=== PATIENT | male | born 1965 ===

== ENCOUNTER 2017-03-07 16:47 | Inpatient (IN) | payer MEDICAID ==
[2017-03-07 16:47] VITALS: BMI 27.3
--- NOTE | 2017-03-07 18:19 | C.PDOC ---
History Of Present Illness 51 y/o male with dm c/oi left sided cp x 1 one; pt sts he was called to his doctor's office for abnormal blood work today, had an echocardiogram done in office and abnormality found so sent to ed. pt was given 2 sprays of sublingual nitro spray and sts pain decreased after second one, has minimal pain now. pt received 324 asa by ems. no prior cardiac catheterizations. Time Seen by Provider: 03/07/17 17:37 Chief Complaint (Nursing): Chest Pain Past Medical History Reviewed: Historical Data, Nursing Documentation, Vital Signs Vital Signs: Last Vital Signs Temp 97.9 F 03/07/17 16:50 Pulse 91 H 03/07/17 16:50 Resp 16 03/07/17 16:50 BP 97/62 L 03/07/17 16:50 Pulse Ox 99 03/07/17 18:48 - Medical History PMH: Anxiety, Back Problems (by HX), Bipolar Disorder, Diabetes, Hepatitis, Post Traumatic Stress Disorder, Schizophrenia Denies: HIV, HTN, Seizures, Sexually Transmitted Disease Surgical History: No Surg Hx - [facility] Procedures APPLICATION OF SPLINT (11/02/13) CLOSURE SKIN & SUBCUTANEOUS NEC (06/19/14) DETOXIFICATION SERVICES FOR SUBSTANCE ABUSE TREATMENT (08/14/16) INJECT/INFUSE NEC (10/02/14) Family History: States: Unknown Family Hx - Social History Hx Tobacco Use: No Hx Alcohol Use: No Hx Substance Use: Yes - Immunization History Hx Tetanus Toxoid Vaccination: Yes Hx Influenza Vaccination: Yes Hx Pneumococcal Vaccination: No Review Of Systems Constitutional: Negative for: Fever, Chills Cardiovascular: Positive for: Chest Pain. Negative for: Palpitations Respiratory: Negative for: Cough, Shortness of Breath Gastrointestinal: Negative for: Nausea, Vomiting, Abdominal Pain Musculoskeletal: Negative for: Arm Pain Skin: Negative for: Rash Neurological: Negative for: Weakness, Numbness Physical Exam - Physical Exam Appears: Non-toxic, No Acute Distress Skin: Normal Color, Warm, Dry Head: Atraumatic, Normacephalic Neck: Normal ROM Chest: Symmetrical, No Deformity, No Tenderness Cardiovascular: Rhythm Regular, No Murmur Respiratory: Normal Breath Sounds, No Rales, No Rhonchi, No Wheezing Gastrointestinal/Abdominal: Normal Exam, Bowel Sounds, Soft, No Tenderness Extremity: Normal ROM, No Pedal Edema, No Calf Tenderness Neurological/Psych: Oriented x3, Normal Speech, Normal Cognition, Normal Motor, Normal Sensation ED Course And Treatment - Laboratory Results Result Diagrams: 03/07/17 18:27 ECG: Interpreted By Me, Viewed By Me ECG Rhythm: Sinus Rhythm ECG Interpretation: Normal Rate From EC O2 Sat by Pulse Oximetry: 99 Pulse Ox Interpretation: Normal Medical Decision Making Medical Decision Making: pt sent to ED by Dr Armand Mcintyre for septal dyskinesia on echo in office today. discussed with Dr Mcintyre; requests we admit to [facility]inty[facility] with Dr Luo for cardiology consult. Disposition Discussed With : Molly Mcintyre Doctor Will See Patient In The: Hospital - Disposition Disposition: HOSPITALIZED Disposition Time: 18:48 Condition: STABLE - Clinical Impression Clinical Impression: Chest pain, Echocardiogram abnormal Decision To Admit - Pt Status Changed To: Hospital Disposition Of: Inpatient - Admit Certification Admit to Inpatient:: After my assessment, the patient will require hospitalization for at least two midnights. This is because of the severity of symptoms shown, intensity of services needed, and/or the medical risk in this patient being treated as an outpatient. - InPatient: Physician Admission Certification: I certify that this patient requires 2 or more midnights of care for the following reason:: for cardiac workup - . Bed Request Type: Telemetry Patient Diagnosis: Chest pain, Echocardiogram abnormal
[2017-03-07 18:30] LABS: BASO # 0.1 K/uL (0.0-0.2); BASO % 1.3 % (0.0-2.0); EOS # 0.1 K/uL (0.0-0.7); EOS % 1.6 % (0.0-4.0); HEMATOCRIT 41.8 % (35.0-51.0); LYMPH # 3.5 K/uL (1.0-4.3); LYMPH % 40.3 % (20.0-40.0); MEAN CELL VOLUME 84.4 fL (80.0-94.0); MEAN CORPUSCULAR HEMOGLOBIN 28.7 pg (27.0-31.0); MEAN PLATELET VOLUME 8.8 fL (7.2-11.7); MONO # 0.8 K/uL (0.0-0.8); MONO % 9.5 % (0.0-10.0); RED CELL DISTRIBUTION WIDTH 12.8 % (11.5-14.5); WHITE BLOOD COUNT 8.7 K/uL (4.8-10.8)
[2017-03-07 18:39] LABS: CHLORIDE 96 mmol/L (98-107)
[2017-03-07 18:40] LABS: POTASSIUM 4.6 mmol/L (3.6-5.2); SODIUM 134 mmol/L (132-148)
[2017-03-07 18:42] LABS: AST/SGOT 66 U/L (17-59); BILIRUBIN,TOTAL 0.7 mg/dL (0.2-1.3); BLOOD UREA NITROGEN 18 mg/dL (9-20); CARBON DIOXIDE 25 mmol/L (22-30); GFR AFRICAN-AMERICAN > 60; TOTAL PROTEIN 7.8 g/dL (6.3-8.3)
[2017-03-07 18:43] LABS: ALKALINE PHOSPHATASE 51 U/L (38-126); ALT/SGPT 66 U/L (21-72); CALCIUM 8.3 mg/dl (8.6-10.4); GLUCOSE,RANDOM 201 mg/dL (75-110)
--- NOTE | 2017-03-08 09:03 | CP.PCM.PN ---
Subjective - Date & Time of Evaluation Date of Evaluation: 03/08/17 Time of Evaluation: 15:00 - Subjective Subjective: Dr. Love service: Patient seen and examined in room. patient denies chest pain or shortness of breath. Objective - Vital Signs/Intake and Output Vital Signs (last 24 hours): Temp Pulse Resp BP Pulse Ox 97.7 F 59 L 20 123/69 96 03/08/17 08:05 03/08/17 08:05 03/08/17 08:05 03/08/17 08:05 03/08/17 08:05 - Medications Medications: Current Medications Heparin Sodium (Porcine) (Heparin) 5,000 units SC Q12 HERLINDA Metformin HCl (Glucophage) 500 mg PO BID HERLINDA Pneumococcal Polyvalent Vaccine (Pneumovax 23 Vaccine) 0.5 ml IM .ONCE ONE Stop: 03/10/17 10:01 - Constitutional Appears: Non-toxic, No Acute Distress - Head Exam Head Exam: NORMAL INSPECTION - Eye Exam Eye Exam: Normal appearance Pupil Exam: NORMAL ACCOMODATION - Respiratory Exam Respiratory Exam: Clear to Ausculation Bilateral, NORMAL BREATHING PATTERN. absent: Rales, Rhonchi, Wheezes - Cardiovascular Exam Cardiovascular Exam: REGULAR RHYTHM, RRR, +S1, +S2. absent: Gallop, Rubs - GI/Abdominal Exam GI & Abdominal Exam: Soft, Normal Bowel Sounds. absent: Tenderness - Extremities Exam Extremities Exam: Normal Inspection. absent: Pedal Edema - Psychiatric Exam Psychiatric exam: Normal Affect, Normal Mood - Skin Skin Exam: Normal Color Assessment and Plan - Assessment and Plan (Free Text) Assessment: Patient had a normal stress test per Dr. Lynch and is stable for discharge. Discharged him and he will follow up with Dr. Love after discharge.
--- NOTE | 2017-03-08 11:24 | RAD ---
HISTORY: chest pain COMPARISON: 07/16/2016 TECHNIQUE: Chest PA and lateral FINDINGS: LUNGS: No active pulmonary disease. PLEURA: No significant pleural effusion identified. No pneumothorax apparent. CARDIOVASCULAR: Normal. OSSEOUS STRUCTURES: No significant abnormalities. VISUALIZED UPPER ABDOMEN: Normal. OTHER FINDINGS: None. IMPRESSION: No active disease.
--- NOTE | 2017-03-08 13:07 | HP ---
The patient is admitted to the hospital with a chief complaint of chest pain, retrosternal, occasiona l shortness of breath. The patient has history of type 2 diabetes. PHYSICAL EXAMINATION: GENERAL: The patient is awake, alert, oriented to time and place. VITAL SIGNS: Temperature 98, pulse 90. HEENT: Within normal limits. NECK: Supple. CHEST: Symmetrical. HEART: Regular. ABDOMEN: Soft. EXTREMITIES: No edema. The patient suffers from unstable angina, rule out acute pulmonary syndrome. The patient get bedrest , cardiac enzymes, cardiology consult. Keke Wesley MD cc: [id number] TT: 03/08/2017 11:37:41 en
--- NOTE | 2017-03-08 15:07 | CARD ---
APPROVED REPORT Protocol: AUTUMN Test Type: MYOVIEW STRESS Test Indications: CHEST PAIN,ABNORMAL ECHOCARDIOGRAM Medications: LIST SCAN Medical History: CHEST PAIN, ABN. ECHO Target HR: 167 bpm Resting ECG: normal Resting Heart Rate: 82 bpm Resting Blood Pressure: 128/80mmHg submaximum (85%): 142 bpm TEST SUMMARY PRETESTWARM-UP12:[id number]/[id number]. EXERCISESTAGE 103:[id number]/70.0. EXERCISESTAGE 202:[id number]/70.0. [id number]/70.0. POST EXERCISE Reason for Termination: Fatigue Target HR: No Max HR: 118 bpm 70% of Maximum Predicted HR: 167 bpm Exercise duration: 05:03 min:sec, 2 Stage Exercise capacity: 7.0METs Max Blood Pressure: 160/70mmHg Blood Pressure response to exercise: normal resting BP - appropriate response Heart Rate response to exercise: appropriate Chest Pain: No, none Angina index: 0 Arrhythmia: No, none ST Change: No, none Deviation: 0 mm INTERPRETATION Stress EKG Conclusion: AWAIT NUCLEAR IMAGES. EXAM: Myocardial Perfusion STRESS/REST Imaging Protocol The imaging protocol used to acquire images was Stress Tc-99m/rest Tc-99m 1 day Stress Spect myocardial perfusion imaging was performed in supine position 38 minutes following the injection of 13 mCi of Tc-99 Myoview. Gated Rest Spect was performed 39 minutes after intravenous 30.6 mCi Tc-99 Myoview injection. The images were gated to evaluate regional wall motion and calculate ventricular ejection fraction.Images were reconstructed using backfilter projection method in short horizontal and verticle long axis. Spect slices were generated. RESTING DATA GBU548.74xcYP2.30L/min ESV35.00mlMyocardial Pufl404.00g Av. Heart Rate62.00bpm EF67.00% STRESS DATA EDV97.12tcUT2.90L/min ESV38.00mlMyocardial Rpqs063.00g EF61.00% Regional WT score at stress:0.00 Regional WM score at stress:0.00 Summed WT score at stress:8.00 Av. Heart Rate66.00bpmSummed WM score at stress:3.00 LV Perf. Quant 17 Seg. SSS0.00 17 Seg. SRS0.00 17 Seg. SDS0.00 Stress Defect Extent (% LAD)0.00Rest Defect Extent (% LAD)0.00Rev. Defect Extent (% LAD)0.00 Stress Defect Extent (% LCX)0.00Rest Defect Extent (% LCX)0.00Rev. Defect Extent (% LCX)0.00 Stress Defect Extent (% RCA)0.00Rest Defect Extent (% RCA)0.00Rev. Defect Extent (% RCA)0.00 Stress Defect Extent (% ESTELA)0.00Rest Defect Extent (% ESTELA)0.00Rev. Defect Extent (% ESTELA)0.00 Other Information Quality:Excellent Overall Exercise Capacity: Average IMPRESSION Normal Myocardial Perfusion exercise stress study Global LV Function: Normal Stress Test Summary: Nondiagnostic LV Perfusion Summary: Normal Left Ventricle LV Size/Shape: The left ventricle is normal size. LV Thickness: There is normal left ventricular wall thickness. LV Function:Left ventricle systolic function is normal. The Ejection Fraction is 55-60%. Regional Wall Motion:No regional wall motion abnormalities noted. Metabolism/Perfusion There are no perfusion/metabolism defects. Conclusion 1. The stress and resting images show normal perfusion.
[2017-03-08 16:08] VITALS: BP 115/70; PULSE 63; RESP 18; TEMP 97.9; O2SAT 97
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
[2017-03-10] MEDS ORDERED: Pneumococcal 23-Valent Vaccine IM ONE (10:00)
--- NOTE | 2017-03-11 12:27 | CARD ---
APPROVED REPORT EKG Measurement Heart [id number] NE 188P37 [id number] <Conclusion> Normal sinus rhythm Normal ECG
== END 2017-03-08 16:45 | disposition home or self-care (01) | DRG 140 ==
LOC: C.ER 16:47 → C.9E 18:45 → C.6T 19:55
PROVIDERS: ADMIT Internal Medicine Pulmonary Disease; ATTEND Internal Medicine Pulmonary Disease
DX: I20.0 Unstable angina (principal); F20.9 Schizophrenia, unspecified; E11.9 Type 2 diabetes mellitus without complications; Z87.891 Personal history of nicotine dependence; F31.9 Bipolar disorder, unspecified; F43.10 Post-traumatic stress disorder, unspecified; Z87.01 Personal history of pneumonia (recurrent)

== ENCOUNTER 2017-03-22 12:48 | Emergency (ER) | payer MEDICAID ==
[2017-03-22 12:56] VITALS: BMI 33.3
[2017-03-22 12:58] VITALS: RESP 18; O2SAT 99
[2017-03-22 13:48] LABS: BASO # 0.1 K/uL (0.0-0.2); BASO % 1.1 % (0.0-2.0); EOS # 0.1 K/uL (0.0-0.7); EOS % 2.5 % (0.0-4.0); HEMATOCRIT 40.7 % (35.0-51.0); LYMPH # 2.7 K/uL (1.0-4.3); LYMPH % 47.4 % (20.0-40.0); MEAN CELL VOLUME 84.5 fL (80.0-94.0); MEAN CORPUSCULAR HEMOGLOBIN 28.1 pg (27.0-31.0); MEAN CORPUSCULAR HGB CONC 33.2 g/dL (33.0-37.0); MEAN PLATELET VOLUME 8.8 fL (7.2-11.7); MONO # 0.6 K/uL (0.0-0.8); MONO % 9.7 % (0.0-10.0); NRBC % 0.1 % (0.0-2.0); RED CELL DISTRIBUTION WIDTH 12.5 % (11.5-14.5); WHITE BLOOD COUNT 5.7 K/uL (4.8-10.8)
--- NOTE | 2017-03-22 13:51 | RAD ---
PROCEDURE: CHEST RADIOGRAPH, 1 VIEW HISTORY: SOB COMPARISON: 03/07/2017 FINDINGS: LUNGS: Mild hazy opacity in the lung bases. PLEURA: No pneumothorax or pleural fluid seen. CARDIOVASCULAR: Normal. OSSEOUS STRUCTURES: No significant abnormalities. VISUALIZED UPPER ABDOMEN: Upper abdomen is suboptimally evaluated. OTHER FINDINGS: None. IMPRESSION: Mild hazy opacity in the lung bases.
[2017-03-22 13:52] LABS: RBC URINE 1 /hpf (0-3); URINE BACTERIA RARE (<OCC); URINE BILIRUBIN NEGATIVE (NEGATIVE); URINE BLOOD NEGATIVE (NEGATIVE); URINE COLOR Yellow (YELLOW); URINE GLUCOSE (UA) 3+ mg/dL (Normal); URINE KETONE NEGATIVE (NEGATIVE); URINE LEUKOCYTE ESTERASE NEG Leu/uL (Negative); URINE PROTEIN NEGATIVE (NEGATIVE); URINE UROBILINOGEN NORMAL mg/dL (0.2-1.0); WBC URINE 1 /hpf (0-5)
[2017-03-22 14:01] LABS: CHLORIDE 100 mmol/L (98-107)
[2017-03-22 14:02] LABS: POTASSIUM 3.7 mmol/L (3.6-5.2); SODIUM 136 mmol/L (132-148)
[2017-03-22 14:04] LABS: ALB/GLOB RATIO 1.1 (1.0-2.1); ALKALINE PHOSPHATASE 56 U/L (38-126); ALT/SGPT 94 U/L (21-72); AST/SGOT 69 U/L (17-59); BILIRUBIN,TOTAL 0.5 mg/dL (0.2-1.3); BLOOD UREA NITROGEN 14 mg/dL (9-20); CARBON DIOXIDE 24 mmol/L (22-30); GFR AFRICAN-AMERICAN > 60; TOTAL PROTEIN 7.6 g/dL (6.3-8.3)
[2017-03-22 14:05] LABS: CALCIUM 8.2 mg/dl (8.6-10.4); GLUCOSE,RANDOM 232 mg/dL (75-110)
--- NOTE | 2017-03-22 14:40 | C.PDOC ---
History Of Present Illness 51 year old male presents to the ED after being referred from outpatient program for elevated blood sugar and left chest discomfort. Patient states the chest discomfort is positionally and digitally reproducible and notes he lifts weights. He took his Glyburide 5 mg a day but not his Metformin 1000mg BID since incarceration. He has no other complaints at this time. Time Seen by Provider: 03/22/17 13:07 Chief Complaint (Nursing): Chest Pain History Per: Patient History/Exam Limitations: no limitations Onset/Duration Of Symptoms: Days Current Symptoms Are (Timing): Still Present Severity: Mild Past Medical History Reviewed: Historical Data, Nursing Documentation, Vital Signs Vital Signs: Last Vital Signs Temp 98.3 F 03/22/17 15:10 Pulse 67 03/22/17 15:10 Resp 18 03/22/17 15:10 BP 131/88 03/22/17 15:10 Pulse Ox 99 03/22/17 15:10 - Medical History PMH: Anxiety, Back Problems (by HX), Bipolar Disorder, Diabetes, Hepatitis, Pneumonia, Post Traumatic Stress Disorder, Schizophrenia - [facility] Procedures APPLICATION OF SPLINT (11/02/13) CLOSURE SKIN & SUBCUTANEOUS NEC (06/19/14) DETOXIFICATION SERVICES FOR SUBSTANCE ABUSE TREATMENT (08/14/16) INJECT/INFUSE NEC (10/02/14) Family History: States: Unknown Family Hx - Social History Hx Tobacco Use: No Hx Alcohol Use: Yes Hx Substance Use: Yes - Immunization History Hx Tetanus Toxoid Vaccination: Yes Hx Influenza Vaccination: Yes (12/2016) Hx Pneumococcal Vaccination: No Review Of Systems Except As Marked, All Systems Reviewed And Found Negative. Constitutional: Positive for: Other (+Elevated blood sugar). Negative for: Fever, Chills Cardiovascular: Negative for: Palpitations Respiratory: Negative for: Shortness of Breath Musculoskeletal: Positive for: Other (+Left chest discomfort). Negative for: Neck Pain, Back Pain Neurological: Negative for: Weakness, Numbness, Headache Physical Exam - Physical Exam Appears: Non-toxic, No Acute Distress Skin: Normal Color, Warm, Dry Head: Atraumatic, Normacephalic Eye(s): bilateral: Normal Inspection Oral Mucosa: Moist Chest: Symmetrical, No Deformity Cardiovascular: Rhythm Regular, No Murmur Respiratory: Normal Breath Sounds, No Accessory Muscle Use, No Rales, No Rhonchi , No Wheezing Gastrointestinal/Abdominal: Soft, No Tenderness Extremity: Normal ROM Neurological/Psych: Oriented x3, Normal Speech, Normal Cognition ED Course And Treatment - Laboratory Results Result Diagrams: 03/22/17 13:40 03/22/17 13:40 Lab Interpretation: Normal (trop neg, AiC 9.8H, UA/tox neg.) ECG: Interpreted By Me ECG Rhythm: Sinus Rhythm ECG Interpretation: Normal Rate From EC O2 Sat by Pulse Oximetry: 99 (Room air) Pulse Ox Interpretation: Normal - Radiology CXR: Interpreted by Me CXR Interpretation: Yes: No Acute Disease Progress Note: EKG, CXR, Blood work, and Urinalysis ordered and reviewed. 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 Headley for f/u. in 2-3 weeks. Disposition Doctor Will See Patient In The: Office Counseled Patient/Family Regarding: Studies Performed, Diagnosis - Disposition Referrals: Keke Headley MD [Staff Provider] - Disposition: HOME/ ROUTINE Disposition Time: 14:40 Condition: GOOD Additional Instructions: continue Glyburide 5 mg twice a day with meals ADD Metformin 1000 mg twice a day with meals Check your finger stick and write down the values in a log book twice a day before meals (breakfast and dinner) Try to observe a diabetic diet: 4-5 small meals per day, high in protein and lower in sugars and carbohydrates. Follow-up with Dr. Headley in 2-3 weeks and bring your fingerstick log book for review. Prescriptions: Lancets/Blood Glucose Strips [Fora [id number] Strp-Lnct] 1 each MC BID #60 combo..pkg glyBURIDE [Micronase] 5 mg PO BID #60 tab MetFORMIN [glucoPHAGE] 1,000 mg PO BID #60 tab Instructions: Costochondritis (ED), Diabetic Hyperglycemia (ED) - Clinical Impression Clinical Impression: Chest discomfort, Hyperglycemia - Scribe Statement The provider has reviewed the documentation as recorded by the Scribe Alfonso Brice. Provider Attestation: All medical record entries made by the Scribe were at my direction and personally dictated by me. I have reviewed the chart and agree that the record accurately reflects my personal performance of the history, physical exam, medical decision making, and the department course for this patient. I have also personally directed, reviewed, and agree with the discharge instructions and disposition.
[2017-03-22 15:12] VITALS: BP 131/88; PULSE 67; TEMP 98.3
--- NOTE | 2017-03-25 12:07 | CARD ---
APPROVED REPORT EKG Measurement Heart [id number] MO 196P56 [id number] <Conclusion> Normal sinus rhythm Normal ECG
== END 2017-03-22 15:00 | disposition home or self-care (01) ==
LOC: C.ER 12:48
DX: R07.89 Other chest pain (principal); E11.65 Type 2 diabetes mellitus with hyperglycemia

== ENCOUNTER 2017-06-06 17:07 | Emergency (ER) | payer MEDICAID, OTHER ==
[2017-06-06 17:07] VITALS: BMI 33.3
[2017-06-06 17:17] VITALS: TEMP 98.2
--- NOTE | 2017-06-06 18:48 | C.PDOC ---
History Of Present Illness Pt c/o low back pain radiating to the lower extremities. Time Seen by Provider: 06/06/17 17:28 Chief Complaint (Nursing): Back Pain History Per: Patient Onset/Duration Of Symptoms: Days (4) Current Symptoms Are (Timing): Still Present Quality Of Discomfort: "Pain" Severity: Moderate Previous Symptoms: Back Pain Associated Symptoms: None Exacerbating Factor(s): Turning, Movement Additional History Per: Prior Records Past Medical History Reviewed: Historical Data, Nursing Documentation, Vital Signs Vital Signs: Last Vital Signs Temp 98.2 F 06/06/17 17:14 Pulse 80 06/06/17 17:14 Resp 20 06/06/17 17:14 BP 145/86 06/06/17 17:14 Pulse Ox 96 06/06/17 17:14 - Medical History PMH: Anxiety, Back Problems, Bipolar Disorder, Diabetes, Hepatitis, Pneumonia, Post Traumatic Stress Disorder, Schizophrenia - [facility] Procedures APPLICATION OF SPLINT (11/02/13) CLOSURE SKIN & SUBCUTANEOUS NEC (06/19/14) DETOXIFICATION SERVICES FOR SUBSTANCE ABUSE TREATMENT (08/14/16) INJECT/INFUSE NEC (10/02/14) Family History: States: Unknown Family Hx - Social History Hx Tobacco Use: No Hx Alcohol Use: Yes Hx Substance Use: Yes - Immunization History Hx Tetanus Toxoid Vaccination: Yes Hx Influenza Vaccination: Yes (12/2016) Hx Pneumococcal Vaccination: No Review Of Systems Except As Marked, All Systems Reviewed And Found Negative. Constitutional: Negative for: Fever, Weakness Cardiovascular: Negative for: Chest Pain Respiratory: Negative for: Shortness of Breath Gastrointestinal: Negative for: Vomiting, Abdominal Pain Genitourinary: Negative for: Dysuria, Incontinence, Hematuria Musculoskeletal: Positive for: Back Pain. Negative for: Neck Pain Skin: Negative for: Rash Neurological: Negative for: Weakness, Seizures, Altered Mental Status Physical Exam - Physical Exam Appears: Non-toxic, No Acute Distress Skin: Normal Color, Warm, Dry, No Rash Head: Atraumatic, Normacephalic Neck: Normal ROM, Supple Cardiovascular: Rhythm Regular Respiratory: Normal Breath Sounds, No Accessory Muscle Use Gastrointestinal/Abdominal: Soft, No Tenderness Back: No CVA Tenderness, No Vertebral Tenderness, Paraspinal Tenderness Extremity: Normal ROM Neurological/Psych: Oriented x3, Normal Motor, Normal Sensation ED Course And Treatment O2 Sat by Pulse Oximetry: 96 Pulse Ox Interpretation: Normal Reassessment Condition: Improved Disposition Counseled Patient/Family Regarding: Diagnosis, Need For Followup, Rx Given - Disposition Referrals: Keke Love MD [Staff Provider] - Disposition: HOME/ ROUTINE Disposition Time: 18:47 Condition: IMPROVED Additional Instructions: Follow up with your doctor for further evaluation and treatment, including possible MRI of the back. Return to the ER if you develop weakness, incontinence, worsening of symptoms or if you have any other concerns. Prescriptions: Naproxen [Naprosyn] 1 tab PO BID PRN #20 tab PRN Reason: Pain traMADol/Acetaminophen [Ultracet 325 MG-37.5 MG] 1 tab PO Q4 PRN #30 tab PRN Reason: Pain, Severe (8-10) Instructions: Back Pain (ED) - Clinical Impression Clinical Impression: Low back pain radiating down leg
[2017-06-06 19:08] VITALS: BP 124/79; PULSE 70; RESP 16; O2SAT 98
== END 2017-06-06 19:07 | disposition home or self-care (01) ==
LOC: C.ER 17:07
DX: M54.5 Low back pain (principal)
CPT/HCPCS: 96372; 99283; J1885

== ENCOUNTER 2018-06-02 09:33 | Inpatient (IN) | payer MEDICAID ==
[2018-06-02 09:33] VITALS: BMI 27.0
[2018-06-02 10:30] LABS: BASO # 0.1 K/uL (0.0-0.2); BASO % 0.7 % (0.0-2.0); EOS # 0.1 K/uL (0.0-0.7); EOS % 1.4 % (0.0-4.0); HEMOGLOBIN 13.8 g/dL (12.0-18.0); LYMPH # 1.1 K/uL (1.0-4.3); LYMPH % 12.1 % (20.0-40.0); MEAN CELL VOLUME 83.6 fL (80.0-94.0); MEAN CORPUSCULAR HEMOGLOBIN 28.4 pg (27.0-31.0); MEAN PLATELET VOLUME 7.7 fL (7.2-11.7); MONO # 0.3 K/uL (0.0-0.8); MONO % 3.1 % (0.0-10.0); NEUT # 7.5 K/uL (1.8-7.0); NEUT % 82.7 % (50.0-75.0); NRBC % 0.1 % (0.0-2.0); RBC 4.85 Mil/uL (4.40-5.90); RED CELL DISTRIBUTION WIDTH 13.8 % (11.5-14.5)
[2018-06-02 10:47] LABS: ALB/GLOB RATIO 1.1 (1.0-2.1); ALBUMIN 4.1 g/dL (3.5-5.0); ALT/SGPT 49 U/L (21-72); AST/SGOT 59 U/L (17-59); BLOOD UREA NITROGEN 16 mg/dL (9-20); CALCIUM 9.1 mg/dl (8.6-10.4); GFR AFRICAN-AMERICAN > 60; GFR NON-AFRICAN AMERICAN > 60
[2018-06-02 16:42] LABS: URINE BILIRUBIN NEGATIVE (NEGATIVE); URINE BLOOD NEGATIVE (NEGATIVE); URINE CLARITY Clear (Clear); URINE COLOR Yellow (YELLOW); URINE GLUCOSE (UA) NORMAL (Normal); URINE LEUKOCYTE ESTERASE NEG Leu/uL (Negative); URINE PROTEIN NEGATIVE (NEGATIVE)
[2018-06-02 17:01] LABS: BARBITURATES, UR NEGATIVE (NEGATIVE); BENZODIAZEPINES, UR NEGATIVE (NEGATIVE); PHENCYCLIDINE, UR NEGATIVE (NEGATIVE)
[2018-06-02 17:05] LABS: OPIATES, UR POSITIVE (NEGATIVE)
--- NOTE | 2018-06-02 17:57 | C.PDOC ---
History Of Present Illness 52 y/o male, w/PMhx of schizophrenia, depression, bipolar disorder, and anxiety , presents to the ER complaining of hallucinations. Patient states that he is hearing voices and he is seeing " other things." Patient notes that he is not compliant with his medications. Time Seen by Provider: 06/02/18 09:58 Chief Complaint (Nursing): Psychiatric Evaluation Past Medical History Reviewed: Historical Data, Nursing Documentation, Vital Signs Vital Signs: Last Vital Signs Temp 99.0 F 06/02/18 10:02 Pulse 68 06/02/18 13:17 Resp 22 06/02/18 13:17 BP 118/72 06/02/18 13:17 Pulse Ox 95 06/02/18 17:57 - Medical History PMH: Anxiety, Back Problems, Bipolar Disorder, Crohn's Disease, Depression, Diabetes, Obstructive Bowel, Post Traumatic Stress Disorder, Schizophrenia Denies: Hepatitis, HIV, HTN, Chronic Kidney Disease, Seizures, Sexually Transmitted Disease Surgical History: Cholecystectomy, Hernia Repair - [facility] Procedures APPLICATION OF SPLINT (11/02/13) CLOSURE SKIN & SUBCUTANEOUS NEC (06/19/14) DETOXIFICATION SERVICES FOR SUBSTANCE ABUSE TREATMENT (08/14/16) INDIVIDUAL PSYCHOTHERAPY, BEHAVIORAL (10/03/17) INJECT/INFUSE NEC (10/02/14) Family History: States: No Known Family Hx - Social History Hx Tobacco Use: No Hx Alcohol Use: No Hx Substance Use: Yes (TODAY) - Immunization History Hx Tetanus Toxoid Vaccination: Yes Hx Influenza Vaccination: Yes (12/2016) Hx Pneumococcal Vaccination: No Review Of Systems Except As Marked, All Systems Reviewed And Found Negative. Psych: Positive for: Other (hallucinations) Physical Exam - Physical Exam Appears: Other (strange affect, bizarre behavior) Skin: Normal Color, Warm, Dry Head: Atraumatic, Normacephalic Eye(s): bilateral: Normal Inspection Nose: Normal Oral Mucosa: Moist Neck: Supple Chest: Symmetrical Cardiovascular: Rhythm Regular Respiratory: Normal Breath Sounds, No Rales, No Rhonchi, No Wheezing Gastrointestinal/Abdominal: Normal Exam, Soft, No Tenderness, No Guarding, No Rebound Neurological/Psych: Oriented x3, No Normal Speech (tangential speech) ED Course And Treatment - Laboratory Results Result Diagrams: 06/02/18 10:26 06/02/18 10:26 O2 Sat by Pulse Oximetry: 95 (RA) Pulse Ox Interpretation: Normal Medical Decision Making Medical Decision Making: Assessment: Schizophrenia Plan: --Labs --UA --Ativan PO --Haldol PO Updates: Patient is medically cleared for crisis. Patient has been admitted under the service of for schizophrenia. Disposition Discussed With .: Coral Harrington Doctor Will See Patient In The: Hospital Counseled Patient/Family Regarding: Studies Performed, Diagnosis - Disposition Disposition: HOSPITALIZED Disposition Time: 17:56 Condition: FAIR - Clinical Impression Clinical Impression: Schizophrenia - Scribe Statement The provider has reviewed the documentation as recorded by the Scribe Ricardo Rodriguez Provider Attestation: All medical record entries made by the Scribe were at my direction and personally dictated by me. I have reviewed the chart and agree that the record accurately reflects my personal performance of the history, physical exam, medical decision making, and the department course for this patient. I have also personally directed, reviewed, and agree with the discharge instructions and disposition.
--- NOTE | 2018-06-02 19:39 | PCM.BM ---
<Avinash Cadena - Last Filed: 06/02/18 19:37> Treatment Plan Problems - Problems identified on initial assessmt Visual hallucinations Date Initiated: 06/02/18 Time Initiated: 19:37 Assessment reference: NA Substance Abuse Date Initiated: 06/02/18 Time Initiated: 19:37 Assessment reference: NA Treatment assets and liabiliti Patient Assests: self-reliant, ADL independent, negotiates basic needs Patient Liabilities: live alone (Homeless), substance abuse (Heroin, Crack cocaine, and cannibis), medical problems (Diabetes, Crohns disease) - Milieu Protocol Maintain good personal hygiene: daily Encourage regular showers, daily Remind patient to perform daily oral care, every shift Assist patient to perform ADL's Conduct patient checks and document Observation sheet: Q15 minutes (For Safety) Maintain personal safety: every shift Educate patient to report safety concerns to staff, every shift Monitor environment for contraband/sharps Medication safety: Monitor for expected outcome, potential side effects: every shift, Assess barriers to learning: every shift, Assess readiness for medication education: every shift <Deepika Amaro - Last Filed: 06/07/18 03:52> - Diagnosis (1) Schizophrenia Status: Acute Interventions: 06/07/18 03:52 * Assess/adjust medications daily and /or as needed * See patient on an individual basis 7x/week to assess status of hallucinations * Discuss risks, benefits, side effects and alternatives of medications * (2) Opioid use disorder, severe, dependence Status: Acute Interventions: 06/07/18 03:52 * Assess 7x/week regarding severity of withdrawal * Educate regarding risks, benefits, side effects and alternatives of medications * Use Motivational Interviewing for abstinence * Use CBT for relapse prevention * Medication management for withdrawal symptoms * Encourage medication assisted treatment * <Mis Goldberg - Last Filed: 06/09/18 14:33> Family Contact Family involvement: [place]/SO not involved - Goals for Treatment Patient goals for treatment: "I want to go to rehab." Discharge/Continuing Care - Education Needs Education Needs: Patient Medication, Patient Coping Skills, Patient Placement options, Patient Community resources - Discharge Discharge Criteria: Tolerates medication w/o severe side effects, No longer exhibiting s/s of withdrawal, Reduction of target symptoms Discharge to:: Substance Abuse Rehab - Treatment Team Participation Discussed with Family/SO: No Was Patient/Family/SO present at Treatment Team Meeting: Yes
[2018-06-02] MEDS ORDERED: Aluminum Hydroxide/Magnesium Hydroxide Susp (30 mL) PO PRN (21:00)
--- NOTE | 2018-06-03 11:02 | PCM.PSYCH ---
Initial Psychiatric Evaluation - Initial Psychiatric Evaluation Type of Admission: Voluntary Legal Status: Capacity Chief Complaint (in patient's own words): I am hearing voices.' History of Present Illness and Precipitating Events: Patient is a 52 year old male with a history of schizophrenia and poly- substance dependence self referred to [facility], because of disorganized behavior. As per the ED note, pt was disorganized and internally preoccupied. His speech was tangential. Patient also reported excruciating leg pain and states he was paralyzed (although he was ambulatory). 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 'They killed my sister, My mothers . My fathers .' ' Im not taking my meds.' Pinmaker asked patient what meds he is supposed to take. Patient states Abilify, something else and something else. Patient reports he hasnt taken his meds in 2 months. Patient is a poor historian secondary due to his psychosis. Patient admits hearing voices telling him "You're a fag!" and "You're scared". Patient also is not clear as to what he is seeking in this ER visit. Patient maintains he needs help but is vague. Pinmaker asked patient if he needed to sign into the hospital. He reports of injecting 10-20 bags daily along with some cocaine. Last abuse was yesterday. He reports withdrawal symptoms including nausea, back pian and seating. He reports depressed mood, poor sleep and irritability. PMH None reported Current Medications: Active Medications Generic Name Dose Route Start Last Admin Trade Name Freq PRN Reason Stop Dose Admin Al Hydrox/Mg Hydrox/Simethicone 30 ml 06/02/18 21:00 Maalox 30 Ml PO TID PRN Indigestion / Heartburn Clonidine HCl 0.1 mg 06/02/18 22:00 Catapres PO Q8 PRN COWS Score More or Equal to 5 Haloperidol 5 mg 06/02/18 20:37 Haldol PO Q1H PRN agitation, max 4x/24h Hydroxyzine HCl 50 mg 06/02/18 20:37 Atarax PO Q6H PRN Anxiety Ibuprofen 600 mg 06/02/18 22:00 Motrin Tab PO Q6H PRN Pain, moderate (4-7) Loperamide HCl 2 mg 06/02/18 22:00 Imodium PO Q8 PRN Diarrhea Metformin HCl 500 mg 06/03/18 08:00 06/03/18 08:50 Glucophage PO 500 mg BIDCC HERLINDA Administration Mirtazapine 15 mg 06/02/18 22:00 06/02/18 22:24 Remeron PO Not Given HS HERLINDA Ondansetron HCl 4 mg 06/02/18 22:00 Zofran Tab PO Q8 PRN Nausea/Vomiting Past Psychiatric History - Past Psychiatric History Previous Treatment History: Inpatient Pertinent Medical Hx (Current Medical&Sleep Prob, Allergies): Allergies Allergy/AdvReac Type Severity Reaction Status Date / Time Penicillins Allergy SHORTNESS Verified 06/02/18 09:56 OF BREATH No Known Home Med 06/02/18 Review of Systems - Review of Systems All systems: reviewed and no additional remarkable complaints except - Psychiatric Psychiatric: Anxiety, Auditory Hallucinations, Irritability, Suicidal Ideation Mental Status Examination - Personal Presentation Personal Presentation: Looks stated age - Affect Affect: Constricted, Depressed - Motor Activity Motor Activity: Calm - Reliability in Providing Information Reliability in Providing Information: Fair - Speech Speech: Organized - Mood Mood: Depressed, Anxious - Formal Thought Process Formal Thought Process: Hallucinations, Delusions, Paranoia - Hallucinations/Delusions Hallucinations: Auditory Delusions: Persecution - Obsessions/Compulsions Obsessions: No Compulsions: No - Cognitive Functions Orientation: Person, Place, Situation, Time Sensorium: Alert Attention/Concentration: Attentive Abstract Thinking: [place] Estimate of Intelligence: Below average Judgement: Imparied, as evidence by: Poor judgement, Imparied, as evidence by: Lack of insight into illness - Risk Risk: Suicidal, Withdrawal, Diminished functioning - Limitations Limitations: Living alone DSM 5 DX - DSM 5 DSM 5 Diagnosis: Bipolar mixed severe with psychotic features R/O Schizophrenia paranoid type Opioid use severe Opioid withdrawal Cocaine use disorder severe - Recommended/Plan of Treatment Treatment Recommendations and Plan of Treatment: Bipolar mixed severe with psychotic features R/O Schizophrenia paranoid type Opioid use severe Opioid withdrawal Cocaine use disorder severe -Psychotherapy -Supportive therapy, group therapy, individual therapy -Methadone taper -Atarax 25 mg PO Q6 prn -Haldol 5 mg PO BID -Remeron 15 mg PO QHS -Trazodone 50 mg PO QHS prn -Neurontin 300 mg PO tid
--- NOTE | 2018-06-04 18:52 | PCM.PYCHPN ---
Psychiatric Progress Note - Psychiatric Progress Note Patient seen today, length of contact: 15 minutes Patient Chief Complaint: "I'm getting better" Problems Identified/Issues Discussed: Pt was seen and evaluated. Chart reviewed. Nurse input received. Pt is compliant with meds and denied s/e. Pt has depressive symptoms. He still have withdrawal symptoms including tremors, nervousness. He needs more time to stabilize. He reported decrease in AH. Medication Change: Yes (methadone taper) Medical Record Reviewed: Yes Mental Status Examination - Cognitive Function Orientation: Person, Place, Situation, Time Memory: Intact Attention: WNL Concentration: Poor Association: WNL Fund of Knowledge: WNL Decription of patient's judgement and insights: limited/fair - Mood Mood: Depressed, Anxious - Affect Affect: Constricted, Depressed - Speech Speech: Appropriate - Formal Thought Process Formal Thought Process: Hallucinations, Delusions, Paranoia - Suicidal Ideation Suicidal Ideation: No Plan: denied - Homicidal Ideation Homicidal Ideation: No Plan: denied Goal/Treatment Plan - Goal/Treatment Plan Need for Continued Stay: Severe depression anxiety, Discharge may exacerbated symptoms Progress Toward Problem(s) and Goals/Treatment Plan: Continue medications Support and psychoeducation daily Attend groups and activities daily After care planning by - Smoking Cessation Smoking Cessation Initiated: Yes
--- NOTE | 2018-06-05 09:54 | PCM.PYCHPN ---
Psychiatric Progress Note - Psychiatric Progress Note Patient seen today, length of contact: 15 minutes Patient Chief Complaint: I am hearing voices.' Problems Identified/Issues Discussed: Mr. Nicole said suffers from Bipolar Disorder, PTSD, and Explosive temperment disorder, and hallucinations which has not improved since his admission to [facility]. He has some suicidal and homicidal ideations. Pt complained of being too tired to talk or elaborate during the interview and ostensibly remained in bed and isolated for most the day. Medication Change: Yes (methadone taper) Medical Record Reviewed: Yes Mental Status Examination - Cognitive Function Orientation: Person, Place, Situation, Time Memory: Intact Attention: WNL Concentration: Poor Association: WNL Fund of Knowledge: WNL - Mood Mood: Depressed, Anxious - Affect Affect: Constricted, Depressed - Speech Speech: Appropriate - Formal Thought Process Formal Thought Process: Hallucinations, Delusions, Paranoia - Suicidal Ideation Suicidal Ideation: No - Homicidal Ideation Homicidal Ideation: No Goal/Treatment Plan - Goal/Treatment Plan Need for Continued Stay: Severe depression anxiety, Discharge may exacerbated symptoms Progress Toward Problem(s) and Goals/Treatment Plan: Bipolar mixed severe with psychotic features R/O Schizophrenia paranoid type Opioid use severe Opioid withdrawal Cocaine use disorder severe -Psychotherapy -Supportive therapy, group therapy, individual therapy -Methadone taper -Atarax 25 mg PO Q6 prn -Haldol 5 mg PO BID -Remeron 15 mg PO QHS -Trazodone 50 mg PO QHS prn -Neurontin 300 mg PO tid
--- NOTE | 2018-06-06 14:38 | PCM.PYCHPN ---
Psychiatric Progress Note - Psychiatric Progress Note Patient seen today, length of contact: 15 minutes Patient Chief Complaint: I am hearing voices.' Problems Identified/Issues Discussed: Mr. Nicole says that his general mood is better since yesterday. He said he did not feel depressed and that does not have any suicidal or homicidal ideations. He says that he is sleeping well. His energy was still decreased. Medication Change: Yes (methadone taper) Medical Record Reviewed: Yes Mental Status Examination - Cognitive Function Orientation: Person, Place, Situation, Time Memory: Intact Attention: WNL Concentration: Poor Association: WNL Fund of Knowledge: WNL - Mood Mood: Depressed, Anxious - Affect Affect: Constricted, Depressed - Speech Speech: Appropriate - Formal Thought Process Formal Thought Process: Hallucinations, Delusions, Paranoia - Suicidal Ideation Suicidal Ideation: No - Homicidal Ideation Homicidal Ideation: No Goal/Treatment Plan - Goal/Treatment Plan Need for Continued Stay: Severe depression anxiety, Discharge may exacerbated symptoms Progress Toward Problem(s) and Goals/Treatment Plan: Bipolar mixed severe with psychotic features R/O Schizophrenia paranoid type Opioid use severe Opioid withdrawal Cocaine use disorder severe -Psychotherapy -Supportive therapy, group therapy, individual therapy -Methadone taper -Atarax 25 mg PO Q6 prn -Haldol 5 mg PO BID -Remeron 15 mg PO QHS -Trazodone 50 mg PO QHS prn -Neurontin 300 mg PO tid
--- NOTE | 2018-06-07 14:37 | PCM.PYCHPN ---
Psychiatric Progress Note - Psychiatric Progress Note Patient seen today, length of contact: 15 minutes Problems Identified/Issues Discussed: Patient seen, chart reviewed, case was discussed with the staff. Issues related to illness and treatment were discussed with the staff and the patient. Reported compliant with treatment with no adverse effects. Tolerating treatment very well. Patient reported feeling better. Still reporting some sleeping problem. Patient was calm and cooperative. Risks and benefits of medications were discussed with the patient. After clear discussed with patient. At the time of evaluation, patient was awake alert oriented x3, no delusions, no auditory hallucination or visual hallucinations, no suicidal or homicidal ideations. Medical Problems: None reported Diagnostic Results: Reviewed DSM 5 Symptoms Update: Improving with treatment Medication Change: No Medical Record Reviewed: Yes Mental Status Examination - Cognitive Function Orientation: Person, Place, Situation, Time Memory: Intact Attention: WNL Concentration: WNL Association: WNL Fund of Knowledge: [facility] Decription of patient's judgement and insights: Fair - Mood Mood: Depressed (Much less than before) - Affect Affect: Other (Appropriate) - Speech Speech: Appropriate - Formal Thought Process Formal Thought Process: No Impairment - Suicidal Ideation Suicidal Ideation: No - Homicidal Ideation Homicidal Ideation: No Goal/Treatment Plan - Goal/Treatment Plan Need for Continued Stay: Remain at risks for inpatient hospitalization, Discharge may exacerbated symptoms, Severe functional impairment Progress Toward Problem(s) and Goals/Treatment Plan: Improving. Patient education. Supportive therapy. Continue treatment as before. Estimated Date of D/C: 06/10/18 - Smoking Cessation Smoking Cessation Initiated: No
[2018-06-08 06:31] VITALS: O2SAT 98
--- NOTE | 2018-06-08 17:53 | PCM.PYCHPN ---
Psychiatric Progress Note - Psychiatric Progress Note Patient seen today, length of contact: 15 minutes Patient Chief Complaint: I am feeling better. My sleep is also better. Problems Identified/Issues Discussed: Patient seen, chart reviewed, case was discussed with the staff. Issues related to illness and treatment were discussed with the staff and the patient. Reported compliant with treatment with no adverse effects. Tolerating treatment very well. Patient reported feeling better. Patient was calm and cooperative. Risks and benefits of medications were discussed with the patient. After clear discussed with patient. At the time of evaluation, patient was awake alert oriented x3, no delusions, no auditory hallucination or visual hallucinations, no suicidal or homicidal ideations. Medical Problems: None reported Diagnostic Results: Reviewed DSM 5 Symptoms Update: Improving with treatment Medication Change: No Medical Record Reviewed: Yes Mental Status Examination - Cognitive Function Orientation: Person, Place, Situation, Time Memory: Intact Attention: WNL Concentration: WNL Association: WN Fund of Knowledge: [facility] Decription of patient's judgement and insights: Fair - Mood Mood: Depressed (Much less than before) - Affect Affect: Other (Appropriate) - Speech Speech: Appropriate - Formal Thought Process Formal Thought Process: No Impairment - Suicidal Ideation Suicidal Ideation: No - Homicidal Ideation Homicidal Ideation: No Goal/Treatment Plan - Goal/Treatment Plan Need for Continued Stay: Remain at risks for inpatient hospitalization, Discharge may exacerbated symptoms, Severe functional impairment Progress Toward Problem(s) and Goals/Treatment Plan: Improving. Patient education. Supportive therapy. Continue treatment as before. Estimated Date of D/C: 06/10/18 - Smoking Cessation Smoking Cessation Initiated: No
--- NOTE | 2018-06-09 12:17 | PCM.PYCHPN ---
Psychiatric Progress Note - Psychiatric Progress Note Patient seen today, length of contact: 15 minutes Patient Chief Complaint: I am hearing voices.' Problems Identified/Issues Discussed: Mr. Nicole said that he is doing about the same since Saturday. He said that his mood and his feelings of guilt were about the same. However, worse were his sleep, interest level, energy level, concentration, appetite, racing thoughts and his anxiety level. He wanted different medication to allow him to calm down more. He does not have suicidal/homicidal thoughts. He does have occasional hallucinations, which are mostly visual, but can also include olfactory and the feeling of someone's presence near him. Medication Change: No Medical Record Reviewed: Yes Mental Status Examination - Cognitive Function Orientation: Person, Place, Situation, Time Memory: Intact Attention: WNL Concentration: WNL Association: WNL Fund of Knowledge: WNL - Mood Mood: Depressed (Much less than before) - Affect Affect: Other (Appropriate) - Speech Speech: Appropriate - Formal Thought Process Formal Thought Process: No Impairment - Suicidal Ideation Suicidal Ideation: No - Homicidal Ideation Homicidal Ideation: No Goal/Treatment Plan - Goal/Treatment Plan Need for Continued Stay: Remain at risks for inpatient hospitalization, Discharge may exacerbated symptoms, Severe functional impairment Progress Toward Problem(s) and Goals/Treatment Plan: Bipolar mixed severe with psychotic features R/O Schizophrenia paranoid type Opioid use severe Opioid withdrawal Cocaine use disorder severe -Psychotherapy -Supportive therapy, group therapy, individual therapy -Methadone taper -Atarax 25 mg PO Q6 prn -Haldol 5 mg PO BID -Remeron 15 mg PO QHS -Trazodone 50 mg PO QHS prn -Neurontin 300 mg PO tid Estimated Date of D/C: 06/10/18
--- NOTE | 2018-06-10 15:16 | PCM.PYCHPN ---
Psychiatric Progress Note - Psychiatric Progress Note Patient seen today, length of contact: 15 minutes Patient Chief Complaint: I am hearing voices.' Problems Identified/Issues Discussed: Mr. Nicole is still not sleeping well because of racing thoughts. He does not have sucidal/homicidal ideations. He does not have hallucinations. His appetite has improved. He is not as isolated - he participated in his first group activity. He remains in bed less throughout the day. Medication Change: No Medical Record Reviewed: Yes Mental Status Examination - Cognitive Function Orientation: Person, Place, Situation, Time Memory: Intact Attention: WNL Concentration: WNL Association: [facility] Fund of Knowledge: [facility] - Mood Mood: Depressed (Much less than before) - Affect Affect: Other (Appropriate) - Speech Speech: Appropriate - Formal Thought Process Formal Thought Process: No Impairment - Suicidal Ideation Suicidal Ideation: No - Homicidal Ideation Homicidal Ideation: No Goal/Treatment Plan - Goal/Treatment Plan Need for Continued Stay: Remain at risks for inpatient hospitalization, Discharge may exacerbated symptoms, Severe functional impairment Progress Toward Problem(s) and Goals/Treatment Plan: Bipolar mixed severe with psychotic features R/O Schizophrenia paranoid type Opioid use severe Opioid withdrawal Cocaine use disorder severe -Psychotherapy -Supportive therapy, group therapy, individual therapy -Methadone taper -Atarax 25 mg PO Q6 prn -Haldol 5 mg PO BID -Remeron 15 mg PO QHS -Trazodone 50 mg PO QHS prn -Neurontin 300 mg PO tid Estimated Date of D/C: 06/10/18
[2018-06-11 06:39] VITALS: BP 136/92; PULSE 103; RESP 18; TEMP 97.8
--- NOTE | 2018-06-11 12:34 | PCM.PYCHDC ---
Mental Status Examination - Mental Status Examination Orientation: Person, Place, Situation, Time Memory: Intact Mood: Neutral Affect: Constricted Speech: Soft Attention: WNL Concentration: WNL Association: WNL Fund of Knowledge: WNL Formal Thought Process: No Impairment Description of patient's judgement and insight: good, fair Psychotic Thoughts and Behaviors: denies any AVH Suicidal Ideation: No Current Homicidal Ideation?: No Discharge Summary - Discharge Note Reason for Hospitalization: Patient is a 52 year old male with a history of schizophrenia and poly- substance dependence self referred to [facility], because of disorganized behavior. As per the ED note, pt was disorganized and internally preoccupied. His speech was tangential. Patient also reported excruciating leg pain and states he was paralyzed (although he was ambulatory). 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 'They killed my sister, My mothers . My fathers .' ' Im not taking my meds.' Hose Turner asked patient what meds he is supposed to take. Patient states Abilify, something else and something else. Patient reports he hasnt taken his meds in 2 months. Patient is a poor historian secondary due to his psychosis. Patient admits hearing voices telling him "You're a fag!" and "You're scared". Patient also is not clear as to what he is seeking in this ER visit. Patient maintains he needs help but is vague. Hose Turner asked patient if he needed to sign into the hospital. He reports of injecting 10-20 bags daily along with some cocaine. Last abuse was yesterday. He reports withdrawal symptoms including nausea, back pian and seating. He reports depressed mood, poor sleep and irritability. Laboratory Data: Abnormal Lab Results 06/11/18 07:27 POC Glucose (mg/dL) 170 H Consultations:: List each consultation separately and include: 1. Reason for request. 2. Findings. 3. Follow-up Summary of Hospital Course include:: 1. Description of specific treatment plan utilized for patients during their course of treatmen. 2. Summarize the time- course for resolution of acute symptoms and/or regressed behaviors. 3. Describe issues identified and worked on during hospitalization. 4. Describe medication utilized. 5. Describe medical problems identified and treated. 6. Reassessment of suicide risk Summary of Hospital Course: Patient is a 52 year old male with a history of schizophrenia and poly- substance dependence self referred to [facility], because of disorganized behavior. As per the ED note, pt was disorganized and internally preoccupied. His speech was tangential. Patient also reported excruciating leg pain and states he was paralyzed (although he was ambulatory). 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 'They killed my sister, My mothers . My fathers .' ' Im not taking my meds.' Hose Turner asked patient what meds he is supposed to take. Patient states Abilify, something else and something else. Patient reports he hasnt taken his meds in 2 months. Patient is a poor historian secondary due to his psychosis. Patient admits hearing voices telling him "You're a fag!" and "You're scared". Patient also is not clear as to what he is seeking in this ER visit. Patient maintains he needs help but is vague. Hose Turner asked patient if he needed to sign into the hospital. He reports of injecting 10-20 bags daily along with some cocaine. Last abuse was yesterday. He reports withdrawal symptoms including nausea, back pian and seating. He reports depressed mood, poor sleep and irritability. PMH None reported - Diagnosis (1) Schizophrenia Status: Acute (2) Opioid use disorder, severe, dependence Status: Acute - Final Diagnosis (DSM 5) Condition upon Discharge: FAIR Disposition: HOME/ ROUTINE Follow-up Treatment Plan: Bipolar mixed severe with psychotic features R/O Schizophrenia paranoid type Opioid use severe Opioid withdrawal Cocaine use disorder severe -Psychotherapy -Supportive therapy, group therapy, individual therapy -Methadone taper -Atarax 25 mg PO Q6 prn -Haldol 5 mg PO BID -Remeron 15 mg PO QHS -Trazodone 50 mg PO QHS prn -Neurontin 300 mg PO tid Prescriptions/Medication Reconciliation: Benztropine [Cogentin] 1 mg PO BID #60 tab Gabapentin [Neurontin] 300 mg PO BID #60 cap Haloperidol [Haldol] 10 mg PO BID #60 tab Mirtazapine [Remeron] 30 mg PO HS #30 tab
== END 2018-06-11 13:35 | disposition home or self-care (01) | DRG 430 ==
LOC: C.ER 09:33 → C.9E 17:56 → C.5E 18:34
PROVIDERS: ADMIT Psychiatry & Neurology Psychiatry; ATTEND Psychiatry & Neurology Psychiatry
PROC: GZHZZZZ Group Psychotherapy (ICD-10-PCS; principal; 2018-06-02)
PROC: GZ56ZZZ Individual Psychotherapy, Supportive (ICD-10-PCS; 2018-06-02)
DX: F31.64 Bipolar disorder, current episode mixed, severe, with psychotic features (principal); F11.23 Opioid dependence with withdrawal; F14.10 Cocaine abuse, uncomplicated; R45.851 Suicidal ideations; F43.10 Post-traumatic stress disorder, unspecified; F17.200 Nicotine dependence, unspecified, uncomplicated; E11.9 Type 2 diabetes mellitus without complications; F12.10 Cannabis abuse, uncomplicated

== ENCOUNTER 2018-07-04 16:47 | Inpatient (IN) | payer MEDICAID, OTHER ==
[2018-07-04 16:48] VITALS: BMI 27.0
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
[2018-07-04] MEDS ORDERED: Sodium Chloride 0.9% 1,000 ML IV STA (18:03)
[2018-07-04 18:05] LABS: BASO # 0.1 K/uL (0.0-0.2); BASO % 0.9 % (0.0-2.0); EOS # 0.1 K/uL (0.0-0.7); EOS % 0.9 % (0.0-4.0); HEMOGLOBIN 13.5 g/dL (12.0-18.0); LYMPH # 2.2 K/uL (1.0-4.3); LYMPH % 19.1 % (20.0-40.0); MEAN CELL VOLUME 82.7 fL (80.0-94.0); MEAN CORPUSCULAR HEMOGLOBIN 27.4 pg (27.0-31.0); MEAN CORPUSCULAR HGB CONC 33.2 g/dL (33.0-37.0); MEAN PLATELET VOLUME 7.3 fL (7.2-11.7); MONO # 0.8 K/uL (0.0-0.8); MONO % 7.2 % (0.0-10.0); NEUT # 8.2 K/uL (1.8-7.0); NEUT % 71.9 % (50.0-75.0); NRBC % 0.2 % (0.0-2.0); RBC 4.92 Mil/uL (4.40-5.90); RED CELL DISTRIBUTION WIDTH 13.9 % (11.5-14.5); WHITE BLOOD COUNT 11.3 K/uL (4.8-10.8)
[2018-07-04 18:31] LABS: URINE BILIRUBIN NEGATIVE (NEGATIVE); URINE BLOOD NEGATIVE (NEGATIVE); URINE CLARITY Clear (Clear); URINE COLOR Yellow (YELLOW); URINE GLUCOSE (UA) NORMAL (Normal); URINE LEUKOCYTE ESTERASE NEG Leu/uL (Negative); URINE PROTEIN NEGATIVE (NEGATIVE)
[2018-07-04 18:33] LABS: ALB/GLOB RATIO 1.1 (1.0-2.1); ALBUMIN 4.3 g/dL (3.5-5.0); ALT/SGPT 52 U/L (21-72); AST/SGOT 68 U/L (17-59); BLOOD UREA NITROGEN 14 mg/dL (9-20); CALCIUM 8.2 mg/dl (8.6-10.4); GFR AFRICAN-AMERICAN > 60; GFR NON-AFRICAN AMERICAN > 60
[2018-07-04 18:47] LABS: VENOUS BLOOD GAS PCO2 59 mmHg (40-60); VENOUS BLOOD GAS PO2 28 mm/Hg (30-55); VENOUS BLOOD PH 7.36 (7.32-7.43)
[2018-07-04 18:51] LABS: BARBITURATES, UR NEGATIVE (NEGATIVE); BENZODIAZEPINES, UR NEGATIVE (NEGATIVE)
[2018-07-04 18:52] LABS: OPIATES, UR POSITIVE (NEGATIVE); PHENCYCLIDINE, UR POSITIVE (NEGATIVE)
[2018-07-04] MEDS ORDERED: Iohexol 350mg/ml 100 ML ONE (19:39)
[2018-07-04] MEDS ORDERED: DiphenhydrAMINE 50 mg/ml Inj IM STA (23:57)
[2018-07-05] MEDS ORDERED: DiphenhydrAMINE 50 mg/ml Inj IM PRN (01:00)
--- NOTE | 2018-07-05 03:44 | PCM.BM ---
<ArmandBoston - Last Filed: 07/05/18 03:43> Treatment Plan Problems - Problems identified on initial assessmt Suicidal Ideation Date Initiated: 07/04/18 Time Initiated: 22:35 Assessment reference: NA Status: Monitor Auditory Hallucination Date Initiated: 07/04/18 Time Initiated: 22:35 Assessment reference: NA Status: Active Treatment assets and liabiliti Patient Assests: self-reliant, ADL independent, negotiates basic needs Patient Liabilities: substance abuse (PCP, Cocaine, marijuana, opiates) - Milieu Protocol Maintain good personal hygiene: daily Encourage regular showers, daily Remind patient to perform daily oral care, every shift Assist patient to perform ADL's Conduct patient checks and document Observation sheet: Q15 minutes Maintain personal safety: every shift Educate patient to report safety concerns to staff, every shift Monitor environment for contraband/sharps Medication safety: Monitor for expected outcome, potential side effects: every shift, Assess barriers to learning: every shift, Assess readiness for medication education: every shift <Deepika Amaro - Last Filed: 07/07/18 11:39> - Diagnosis (1) Schizophrenia Status: Acute Interventions: 07/07/18 11:40 * Assess/adjust medications daily and /or as needed * See patient on an individual basis 7x/week to assess status of hallucinations * Discuss risks, benefits, side effects and alternatives of medications * (2) Opioid use disorder, severe, dependence Status: Acute Interventions: 07/07/18 11:40 * Assess 7x/week regarding severity of withdrawal * Educate regarding risks, benefits, side effects and alternatives of medications * Use Motivational Interviewing for abstinence * Use CBT for relapse prevention * Medication management for withdrawal symptoms * Encourage medication assisted treatment * <Mis Goldberg - Last Filed: 07/07/18 13:35> Family Contact Family involvement: Famliy/SO not involved - Goals for Treatment Patient goals for treatment: "I want to go to rehab." Discharge/Continuing Care - Education Needs Education Needs: Patient Medication, Patient Coping Skills, Patient Placement options, Patient Community resources - Discharge Discharge Criteria: Tolerates medication w/o severe side effects, No longer exhibiting s/s of withdrawal, Reduction of target symptoms Discharge to:: Substance Abuse Rehab - Treatment Team Participation Discussed with Family/SO: No Was Patient/Family/SO present at Treatment Team Meeting: Yes
--- NOTE | 2018-07-05 10:59 | CT ---
Date of service: 07/04/2018 PROCEDURE: CT Abdomen and Pelvis with contrast HISTORY: erythematous rash to groin/scrotum COMPARISON: None. TECHNIQUE: Following the intravenous administration of iodinated contrast material, a CT examination of the abdomen and pelvis performed from the domes of the diaphragms to the symphysis pubis with reformatted datasets provided in axial, sagittal and coronal planes. Oral contrast was not administered as per referring physician request. Contrast dose: Omnipaque 350, 100 cc Radiation dose: Total exam DLP = 425.60 MGy-cm. This CT exam was performed using one or more of the following dose reduction techniques: Automated exposure control, adjustment of the mA and/or kV according to patient size, and/or use of iterative reconstruction technique. FINDINGS: LOWER THORAX: Unremarkable. LIVER: Unremarkable. No gross lesion or ductal dilatation. GALLBLADDER AND BILE DUCTS: Unremarkable. PANCREAS: Unremarkable. No gross lesion or ductal dilatation. SPLEEN: Unremarkable. ADRENALS: Unremarkable. No mass. KIDNEYS AND URETERS: Tiny sub cm lucency upper pole left kidney too small to characterize. No hydronephrosis. VASCULATURE: Unremarkable. No aortic aneurysm. BOWEL: The stomach is distended with retained food. Moderate fecal retention is seen throughout the large bowel with small bowel nonobstructive. The lack oral contrast limits evaluation of the bowel. APPENDIX: Not identified. No definitive pattern to suggest appendicitis. PERITONEUM: Unremarkable. No free fluid. No free air. LYMPH NODES: No abscess related. No gross lymphadenopathy appreciable. BLADDER: Unremarkable. REPRODUCTIVE: Unremarkable. BONES: No acute fracture. OTHER FINDINGS: Limited inferior and posterior perineal rib reactive changes are questioned reflecting the patient's clinical history of erythematous rash related to the patient's groin and scrotum. IMPRESSION: 1. Reactive changes at the perineum are identified potentially reflecting the patient's history of groin/scrotum erythema this cellulitis pattern. No abscess appreciated this time. 2. No definite bowel obstruction, mesenteric edema, ascites or free intra peritoneal gas appreciated. A tiny lucency is seen at the upper pole left kidney too small to characterize.
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
[2018-07-07] MEDS: Divalproex 250 mg DR Tab PO SCH (17:21)
--- NOTE | 2018-07-08 01:35 | PCM.PYCHPN ---
Psychiatric Progress Note - Psychiatric Progress Note Patient seen today, length of contact: 15 min Patient Chief Complaint: I am hearing voices.' Problems Identified/Issues Discussed: Patient seen and evaluated, chart reviewed and discussed with the nurse. Pt reports depressed mood, and remained disorganized and internally preoccupied. He remained isolated and withdrawn, and confined to his room. He still reports AH and paranoid delusions. Patient is compliant with medications and denies any side effects. Symptoms are improving but pt needs more time to stabilize. Support and psychoeducation given. Medication Change: Yes Medical Record Reviewed: Yes Mental Status Examination - Cognitive Function Orientation: Person, Place, Situation, Time Memory: Intact Attention: Poor Concentration: Poor Association: Loose Fund of Knowledge: Poor - Mood Mood: Depressed, Anxious - Affect Affect: Broad - Speech Speech: Stammering - Formal Thought Process Formal Thought Process: Hallucinations, Delusions, Paranoia, Loosening of associations - Suicidal Ideation Suicidal Ideation: No - Homicidal Ideation Homicidal Ideation: No Goal/Treatment Plan - Goal/Treatment Plan Need for Continued Stay: Severe depression anxiety, Severe functional impairment Progress Toward Problem(s) and Goals/Treatment Plan: Schizophrenia paranoid type continuous Opiate use disorder severe Opiate withdrawal Cocaine use disorder severe PCP use disorder moderate CBT Psychoeducation Supportive therapy, group therapy Depakote DR 250 mg PO BID Haldol 5 mg PO BID Seroquel 100 mg P OQHS Gabapentin for augmentation Trazodone for insomnia Hydroxyzine for anxiety Methadone taper when withdrawing Use ND for abstinence - Smoking Cessation Smoking Cessation Initiated: No
[2018-07-08] MEDS: Divalproex 250 mg DR Tab PO SCH ×2 (09:46→18:52)
[2018-07-09] MEDS: Divalproex 250 mg DR Tab PO SCH ×2 (10:13→17:25)
--- NOTE | 2018-07-09 12:06 | CARD ---
APPROVED REPORT Date of service: 07/04/2018 EKG Measurement Heart [id number] <Conclusion> Sinus tachycardia Possible Left atrial enlargement Borderline ECG
[2018-07-10] MEDS: Divalproex 250 mg DR Tab PO SCH ×2 (10:28→17:42)
--- NOTE | 2018-07-10 15:15 | PCM.PYCHPN ---
Psychiatric Progress Note - Psychiatric Progress Note Patient seen today, length of contact: 15 min Patient Chief Complaint: I am still hearing voices.' Problems Identified/Issues Discussed: Patient seen and evaluated, chart reviewed and discussed with the nurse. Pt appears more organized and less internally preoccupied than before. He remained isolated and withdrawn, and confined to his room. Pt still appears constricted, with a blunted affected and depressed mood. But was more receptive to talking today. He still appears paranoid and delusional. Patient is compliant with medications and denies any side effects. Symptoms are improving but pt needs more time to stabilize. Support and psychoeducation given. Medication Change: Yes Medical Record Reviewed: Yes Mental Status Examination - Cognitive Function Orientation: Person, Place, Situation, Time Memory: Intact Attention: Poor Concentration: Poor Association: Loose Fund of Knowledge: Poor - Mood Mood: Depressed, Anxious - Affect Affect: Constricted, Blunted - Speech Speech: Appropriate - Formal Thought Process Formal Thought Process: Hallucinations, Delusions, Paranoia, Loosening of associations - Suicidal Ideation Suicidal Ideation: No - Homicidal Ideation Homicidal Ideation: No Goal/Treatment Plan - Goal/Treatment Plan Need for Continued Stay: Severe depression anxiety, Severe functional impairment Progress Toward Problem(s) and Goals/Treatment Plan: Schizophrenia paranoid type continuous Opiate use disorder severe Opiate withdrawal Cocaine use disorder severe PCP use disorder moderate CBT Psychoeducation Supportive therapy, group therapy Depakote DR 250 mg PO BID Haldol 10 mg PO BID Cogentin 1 mg po bid Seroquel 100 mg P OQHS Gabapentin for augmentation Trazodone for insomnia Hydroxyzine for anxiety Methadone taper when withdrawing Use HI for abstinence
[2018-07-11] MEDS: Divalproex 250 mg DR Tab PO SCH ×2 (10:27→17:11)
--- NOTE | 2018-07-11 16:49 | PCM.PYCHPN ---
Psychiatric Progress Note - Psychiatric Progress Note Patient seen today, length of contact: 15 min Patient Chief Complaint: I am still hearing voices.' Problems Identified/Issues Discussed: Patient seen and evaluated, chart reviewed and discussed with the nurse. Pt appears more organized and less internally preoccupied than before. He remained isolated and withdrawn, and confined to his room. Pt still appears constricted, with a blunted affected and depressed mood. He said that he wants something for sleep since he says he can't sleep at all. He still appears paranoid and delusional. Patient is compliant with medications and denies any side effects. Symptoms are improving but pt needs more time to stabilize. Support and psychoeducation given. Medication Change: Yes Medical Record Reviewed: Yes Mental Status Examination - Cognitive Function Orientation: Person, Place, Situation, Time Memory: Intact Attention: Poor Concentration: Poor Association: Loose Fund of Knowledge: Poor - Mood Mood: Depressed, Anxious - Affect Affect: Constricted, Blunted - Speech Speech: Appropriate - Formal Thought Process Formal Thought Process: Hallucinations, Delusions, Paranoia, Loosening of associations - Suicidal Ideation Suicidal Ideation: No - Homicidal Ideation Homicidal Ideation: No Goal/Treatment Plan - Goal/Treatment Plan Need for Continued Stay: Severe depression anxiety, Severe functional impairment Progress Toward Problem(s) and Goals/Treatment Plan: Schizophrenia paranoid type continuous Opiate use disorder severe Opiate withdrawal Cocaine use disorder severe PCP use disorder moderate CBT Psychoeducation Supportive therapy, group therapy Depakote DR 250 mg PO BID Haldol 10 mg PO BID Cogentin 1 mg po bid Seroquel 100 mg P OQHS Gabapentin for augmentation Trazodone for insomnia Hydroxyzine for anxiety Methadone taper when withdrawing Use [place] for abstinence
[2018-07-12] MEDS: Divalproex 250 mg DR Tab PO SCH ×2 (09:28→17:34)
--- NOTE | 2018-07-12 18:39 | PCM.PYCHPN ---
Psychiatric Progress Note - Psychiatric Progress Note Patient seen today, length of contact: 15 min Patient Chief Complaint: I'm feeling anxiety and also decreased sleep. Problems Identified/Issues Discussed: Patient seen, chart reviewed, case discussed with the staff. Issues related to illness and treatment were discussed with the patient and staff. Reported compliant with treatment with no adverse affects. Tolerating treatment very well. Calm and cooperative. Mood reported as anxious. Affect appropriate. Patient reported also decreased sleeping. We will start Atarax 25 mg by mouth every 6 when necessary for anxiety and trazodone 50 mg at bedtime for sleep. Aftercare discussed with the patient. Patient was awake, alert and oriented 3. Denied any delusions, auditory or visual hallucinations, suicidal ideations or homicidal ideations at the time of evaluation Medical Problems: None reported Diagnostic Results: Reviewed DSM 5 Symptoms Update: Improving with treatment Medication Change: Yes (Started trazodone and Atarax) Medical Record Reviewed: Yes Mental Status Examination - Cognitive Function Orientation: Person, Place, Situation, Time Memory: Intact Attention: WNL Concentration: WNL Association: WNL Fund of Knowledge: [facility] Decription of patient's judgement and insights: Fair - Mood Mood: Anxious - Affect Affect: Other (Appropriate) - Speech Speech: Appropriate - Formal Thought Process Formal Thought Process: No Impairment Psychotic Thoughts and Behaviors: None - Suicidal Ideation Suicidal Ideation: No - Homicidal Ideation Homicidal Ideation: No Goal/Treatment Plan - Goal/Treatment Plan Need for Continued Stay: Remain at risks for inpatient hospitalization, Discharge may exacerbated symptoms, Severe functional impairment Progress Toward Problem(s) and Goals/Treatment Plan: Patient education. Supportive therapy. CBT for relapse prevention. [place] for abstinence. We will start Atarax 25 mg by mouth every 6 when necessary for anxiety. We'll start trazodone 50 mg at bedtime for sleep. Continue rest of the treatment as before. Estimated Date of D/C: 07/14/18 - Smoking Cessation Smoking Cessation Initiated: No
[2018-07-13] MEDS: Divalproex 250 mg DR Tab PO SCH ×2 (09:28→17:58)
--- NOTE | 2018-07-13 16:27 | PCM.PYCHPN ---
Psychiatric Progress Note - Psychiatric Progress Note Patient seen today, length of contact: 15 min Patient Chief Complaint: I'm still feeling anxious. Problems Identified/Issues Discussed: Patient seen, chart reviewed, case discussed with the staff. Issues related to illness and treatment were discussed with the patient and staff. Reported compliant with treatment with no adverse affects. Tolerating treatment very well. Calm and cooperative. Mood reported as anxious. Affect appropriate. Aftercare discussed with the patient. Patient was awake, alert and oriented 3. Denied any delusions, auditory or visual hallucinations, suicidal ideations or homicidal ideations at the time of evaluation Medical Problems: None reported Diagnostic Results: Reviewed DSM 5 Symptoms Update: Improving with treatment. Medication Change: No Medical Record Reviewed: Yes Mental Status Examination - Cognitive Function Orientation: Person, Place, Situation, Time Memory: Intact Attention: WNL Concentration: WNL Association: WN Fund of Knowledge: [facility] Decription of patient's judgement and insights: Fair - Mood Mood: Anxious - Affect Affect: Other (Appropriate) - Speech Speech: Appropriate - Formal Thought Process Formal Thought Process: No Impairment Psychotic Thoughts and Behaviors: None - Suicidal Ideation Suicidal Ideation: No - Homicidal Ideation Homicidal Ideation: No Goal/Treatment Plan - Goal/Treatment Plan Need for Continued Stay: Remain at risks for inpatient hospitalization, Discharge may exacerbated symptoms, Severe functional impairment Progress Toward Problem(s) and Goals/Treatment Plan: Patient education. Supportive therapy. CBT for relapse prevention. [place] for abstinence. Continue treatment as before. Estimated Date of D/C: 07/14/18 - Smoking Cessation Smoking Cessation Initiated: No
--- NOTE | 2018-07-13 23:37 | PCM.PYCHPN ---
Psychiatric Progress Note - Psychiatric Progress Note Patient seen today, length of contact: 15 min Patient Chief Complaint: I am hearing voices.' Problems Identified/Issues Discussed: Patient seen and evaluated, chart reviewed and discussed with the nurse. Pt reports depressed mood, and remained disorganized and internally preoccupied. He remained isolated and withdrawn, and confined to his room. He still reports AH and paranoid delusions. Patient is compliant with medications and denies any side effects. Symptoms are improving but pt needs more time to stabilize. Support and psychoeducation given. Medication Change: Yes Medical Record Reviewed: Yes Mental Status Examination - Cognitive Function Orientation: Person, Place, Situation, Time Memory: Intact Attention: Poor Concentration: Poor Association: Loose Fund of Knowledge: Poor - Mood Mood: Depressed, Anxious - Affect Affect: Broad - Speech Speech: Stammering - Formal Thought Process Formal Thought Process: Hallucinations, Delusions, Paranoia, Loosening of associations - Suicidal Ideation Suicidal Ideation: No - Homicidal Ideation Homicidal Ideation: No Goal/Treatment Plan - Goal/Treatment Plan Need for Continued Stay: Severe depression anxiety, Severe functional impairment Progress Toward Problem(s) and Goals/Treatment Plan: Schizophrenia paranoid type continuous Opiate use disorder severe Opiate withdrawal Cocaine use disorder severe PCP use disorder moderate CBT Psychoeducation Supportive therapy, group therapy Depakote DR 250 mg PO BID Haldol 5 mg PO BID Seroquel 100 mg P OQHS Gabapentin for augmentation Trazodone for insomnia Hydroxyzine for anxiety Methadone taper when withdrawing Use [place] for abstinence Estimated Date of D/C: 07/14/18
[2018-07-14] MEDS: Divalproex 250 mg DR Tab PO SCH ×2 (09:41→17:41)
--- NOTE | 2018-07-14 10:04 | PCM.BM ---
<MindyrickeyMis - Last Filed: 07/14/18 10:03> Treatment Plan Problems - Problems identified on initial assessmt Suicidal Ideation Date Initiated: 07/04/18 Time Initiated: 22:35 Assessment reference: NA Status: Monitor Auditory Hallucination Date Initiated: 07/04/18 Time Initiated: 22:35 Assessment reference: NA Status: Active Treatment assets and liabiliti Patient Assests: self-reliant, ADL independent, negotiates basic needs Patient Liabilities: substance abuse (PCP, Cocaine, marijuana, opiates) - Milieu Protocol Maintain good personal hygiene: daily Encourage regular showers, daily Remind patient to perform daily oral care, every shift Assist patient to perform ADL's Conduct patient checks and document Observation sheet: Q15 minutes Maintain personal safety: every shift Educate patient to report safety concerns to staff, every shift Monitor environment for contraband/sharps Medication safety: Monitor for expected outcome, potential side effects: every shift, Assess barriers to learning: every shift, Assess readiness for medication education: every shift Milieu Narrative: Schizophrenia paranoid type continuous Opiate use disorder severe Opiate withdrawal Cocaine use disorder severe PCP use disorder moderate CBT Psychoeducation Supportive therapy, group therapy Depakote DR 250 mg PO BID Haldol 5 mg PO BID Seroquel 100 mg P OQHS Gabapentin for augmentation Trazodone for insomnia Hydroxyzine for anxiety Methadone taper when withdrawing Use [place] for abstinence Family Contact Family involvement: Famliy/SO not involved - Goals for Treatment Patient goals for treatment: "I want to go to rehab." Discharge/Continuing Care - Education Needs Education Needs: Patient Medication, Patient Coping Skills, Patient Placement options, Patient Community resources - Discharge Discharge Criteria: Tolerates medication w/o severe side effects, No longer exhibiting s/s of withdrawal, Reduction of target symptoms Discharge to:: Substance Abuse Rehab - Treatment Team Participation Patient/Family/SO Statement: Schizophrenia paranoid type continuous Opiate use disorder severe Opiate withdrawal Cocaine use disorder severe PCP use disorder moderate CBT Psychoeducation Supportive therapy, group therapy Depakote DR 250 mg PO BID Haldol 5 mg PO BID Seroquel 100 mg P OQHS Gabapentin for augmentation Trazodone for insomnia Hydroxyzine for anxiety Methadone taper when withdrawing Use [place] for abstinence Discussed with Family/SO: No Was Patient/Family/SO present at Treatment Team Meeting: Yes Treatment Plan Review - Problem Suicidal Ideation Time Initiated: 22:35 Auditory Hallucination Time Initiated: 22:35 - Discharge / Continuing Care Discharge to:: Substance Abuse Rehab Health Needs: Alcohol/Drug treatment <Deepika Amaro - Last Filed: 07/14/18 11:06> - Diagnosis (1) Schizophrenia Status: Acute Interventions: 07/14/18 11:06 * Assess/adjust medications daily and /or as needed * See patient on an individual basis 7x/week to assess status of hallucinations * Discuss risks, benefits, side effects and alternatives of medications * (2) Opioid use disorder, severe, dependence Status: Acute Interventions: 07/14/18 11:06 * Assess 7x/week regarding severity of withdrawal * Educate regarding risks, benefits, side effects and alternatives of medications * Use Motivational Interviewing for abstinence * Use CBT for relapse prevention * Medication management for withdrawal symptoms * Encourage medication assisted treatment * <aHrika Slater - Last Filed: 07/14/18 15:00> Treatment Plan Review - Problem Suicidal Ideation Date Initiated: 07/14/18 Time Initiated: 14:59 Progress toward outcomes: improved Auditory Hallucination Date Initiated: 07/14/18 Time Initiated: 15:00 Progress toward outcomes: improved
[2018-07-14 15:54] VITALS: O2SAT 98
[2018-07-15] MEDS: Divalproex 250 mg DR Tab PO SCH ×2 (10:53→17:41)
--- NOTE | 2018-07-15 15:09 | PCM.PYCHPN ---
Psychiatric Progress Note - Psychiatric Progress Note Patient seen today, length of contact: 15 min Patient Chief Complaint: "I can't sleep" Problems Identified/Issues Discussed: Patient seen and evaluated, chart reviewed and discussed with the nurse. Pt reports depressed mood, stating that he only slept "3 hours" last night.\\ Pt reported pain in the area of his right hip, where previously he said he had paralysis. He remained isolated and withdrawn, and confined to his room. He denied auditory/visual hallucinations and paranoid delusions. Patient is compliant with medications and denies any side effects. Symptoms are improving but pt needs more time to stabilize. Support and psychoeducation given. Medication Change: Yes Medical Record Reviewed: Yes Mental Status Examination - Cognitive Function Orientation: Person, Place, Situation, Time Memory: Intact Attention: WNL Concentration: WNL Association: Loose Fund of Knowledge: Poor - Mood Mood: Depressed, Anxious - Affect Affect: Constricted, Blunted - Speech Speech: Appropriate - Formal Thought Process Formal Thought Process: Paranoia, Loosening of associations - Suicidal Ideation Suicidal Ideation: No - Homicidal Ideation Homicidal Ideation: No Goal/Treatment Plan - Goal/Treatment Plan Need for Continued Stay: Severe depression anxiety, Severe functional impairment Progress Toward Problem(s) and Goals/Treatment Plan: Schizophrenia paranoid type continuous Opiate use disorder severe Opiate withdrawal Cocaine use disorder severe PCP use disorder moderate CBT Psychoeducation Supportive therapy, group therapy Depakote DR 250 mg PO BID Haldol 5 mg PO BID Seroquel 100 mg P OQHS Gabapentin for augmentation Trazodone for insomnia Hydroxyzine for anxiety Methadone taper when withdrawing Use [place] for abstinence Estimated Date of D/C: 07/14/18
[2018-07-16 06:45] VITALS: BP 118/80; PULSE 82; RESP 20; TEMP 98.5
[2018-07-16] MEDS: Divalproex 250 mg DR Tab PO SCH (10:21)
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
== END 2018-07-16 11:59 | disposition home or self-care (01) | DRG 744 ==
LOC: C.ER 16:47 → C.5E 21:55
PROVIDERS: ADMIT Psychiatry & Neurology Psychiatry; ATTEND Psychiatry & Neurology Psychiatry
PROC: HZ52ZZZ Individual Psychotherapy for Substance Abuse Treatment, Cognitive-Behavioral (ICD-10-PCS; principal; 2018-07-04)
PROC: HZ2ZZZZ Detoxification Services for Substance Abuse Treatment (ICD-10-PCS; 2018-07-04)
PROC: GZHZZZZ Group Psychotherapy (ICD-10-PCS; 2018-07-04)
PROC: HZ59ZZZ Individual Psychotherapy for Substance Abuse Treatment, Supportive (ICD-10-PCS; 2018-07-04)
PROC: HZ56ZZZ Individual Psychotherapy for Substance Abuse Treatment, Psychoeducation (ICD-10-PCS; 2018-07-04)
PROC: HZ42ZZZ Group Counseling for Substance Abuse Treatment, Cognitive-Behavioral (ICD-10-PCS; 2018-07-04)
PROC: HZ46ZZZ Group Counseling for Substance Abuse Treatment, Psychoeducation (ICD-10-PCS; 2018-07-04)
PROC: GZ58ZZZ Individual Psychotherapy, Cognitive-Behavioral (ICD-10-PCS; 2018-07-04)
PROC: GZ56ZZZ Individual Psychotherapy, Supportive (ICD-10-PCS; 2018-07-04)
DX: F11.23 Opioid dependence with withdrawal (principal); F20.0 Paranoid schizophrenia; F14.20 Cocaine dependence, uncomplicated; F16.20 Hallucinogen dependence, uncomplicated; E11.9 Type 2 diabetes mellitus without complications; F31.9 Bipolar disorder, unspecified; B35.6 Tinea cruris; F43.10 Post-traumatic stress disorder, unspecified; K50.90 Crohn's disease, unspecified, without complications; R45.851 Suicidal ideations; G47.00 Insomnia, unspecified; F41.8 Other specified anxiety disorders

== ENCOUNTER 2019-04-22 01:16 | Emergency (ER) | payer MEDICAID, OTHER ==
[2019-04-22 01:16] VITALS: BMI 27.0
[2019-04-22 01:54] VITALS: BP 111/65; PULSE 76; TEMP 97.3; O2SAT 96
[2019-04-22 02:49] VITALS: RESP 18
--- NOTE | 2019-04-22 04:12 | C.PDOC ---
History Of Present Illness 53 year old male, as per triage, came in complaining of lower back pain and reporting ETOH intake today. Denies fall, weakness, numbness, dysuria, hematuria, or incontinence. Chief Complaint (Nursing): Back Pain History Per: Patient History/Exam Limitations: no limitations Onset/Duration Of Symptoms: Hrs Current Symptoms Are (Timing): Still Present Associated Symptoms: None Exacerbating Factor(s): Nothing Recent travel outside of the [place]: No Past Medical History Reviewed: Historical Data, Nursing Documentation, Vital Signs Vital Signs: Last Vital Signs Temp 97.3 F L 04/22/19 01:49 Pulse 76 04/22/19 01:49 Resp 18 04/22/19 02:47 BP 111/65 04/22/19 01:49 Pulse Ox 96 04/22/19 01:49 Primary Care Provider: Non [facility] Provider, - Medical History PMH: Anxiety, Back Problems, Bipolar Disorder, Crohn's Disease, Depression, Diabetes, Obstructive Bowel, Post Traumatic Stress Disorder, Schizophrenia Denies: Hepatitis, HIV, HTN, Chronic Kidney Disease, Seizures, Sexually Transmitted Disease Surgical History: Cholecystectomy, Hernia Repair - [facility] Procedures APPLICATION OF SPLINT (11/02/13) CLOSURE SKIN & SUBCUTANEOUS NEC (06/19/14) DETOXIFICATION SERVICES FOR SUBSTANCE ABUSE TREATMENT (07/04/18) GROUP BLOCK SETTER GYPSUM FOR SUBSTANCE ABUSE TREATMENT, PSYCHOEDUCATION (07/04/18) GROUP BLOCK SETTER GYPSUM FOR SUBSTANCE ABUSE, COGNITIVE BEHAVIORAL (07/04/18) GROUP PSYCHOTHERAPY (07/04/18) INDIV PSYCHOTHERAPY FOR SUBSTANCE ABUSE TREATMENT, SUPPORT (07/04/18) INDIV PSYCHOTHERAPY FOR SUBSTANCE ABUSE, COGNITIV BEHAVIORAL (07/04/18) INDIV PSYCHOTHERAPY FOR SUBSTANCE ABUSE, PSYCHOEDUCATION (07/04/18) INDIVIDUAL PSYCHOTHERAPY, BEHAVIORAL (10/03/17) INDIVIDUAL PSYCHOTHERAPY, COGNITIVE-BEHAVIORAL (07/04/18) INDIVIDUAL PSYCHOTHERAPY, SUPPORTIVE (07/04/18) INJECT/INFUSE NEC (10/02/14) Family History: States: Unknown Family Hx - Social History Hx Tobacco Use: No Hx Alcohol Use: Yes Hx Substance Use: Yes - Immunization History Hx Tetanus Toxoid Vaccination: Yes Hx Influenza Vaccination: Yes (12/2016) Hx Pneumococcal Vaccination: No Review Of Systems Genitourinary: Negative for: Dysuria, Incontinence, Hematuria Musculoskeletal: Positive for: Back Pain Neurological: Negative for: Weakness, Numbness Physical Exam - Physical Exam Appears: Non-toxic, No Acute Distress, Other (Sleeping comfortably) Skin: Normal Color, Warm Head: Atraumatic, Normacephalic Eye(s): bilateral: Normal Inspection Neurological/Psych: Oriented x3, Normal Speech Additional Physical Exam Comments: Patient refused to be examined but observed moving all extremities without difficulty. ED Course And Treatment O2 Sat by Pulse Oximetry: 96 (Room air) Pulse Ox Interpretation: Normal Progress Note: When I attempted to question the patient he yelled "stop asking me stupid questions, just give me pain meds and get the fuck out of my face", security was at bedside trying to calm patient down, patient sat upright and began screaming at security then was observed swinging both his legs over the bed railing with moderate ease attempting to kick security and grabbing side rails forcefully with both arms. Patient escorted out by security. Disposition - Disposition Disposition: HOME/ ROUTINE Disposition Time: 04:00 Condition: GOOD Forms: [facility] (Latvian) - Clinical Impression Clinical Impression: Low back pain, Alcohol use - PA / DIRECTOR OF DONOR RELATIONS / Resident Statement MD/DO has reviewed & agrees with the documentation as recorded. - Scribe Statement The provider has reviewed the documentation as recorded by the Scribe Christiano Antunez All medical record entries made by the Marielosibrickey were at my direction and personally dictated by me. I have reviewed the chart and agree that the record accurately reflects my personal performance of the history, physical exam, medical decision making, and the department course for this patient. I have also personally directed, reviewed, and agree with the discharge instructions and disposition.
== END 2019-04-22 02:10 | disposition home or self-care (01) ==
LOC: C.ER 01:16
DX: M54.5 Low back pain (principal); Z72.89 Other problems related to lifestyle